=== PATIENT | female | born 1965 | race Caucasian/White ===

== ENCOUNTER 2021-01-01 08:46 | Emergency (ER) | payer SELFPAY ==
[2021-01-01] MEDS ORDERED: PHENERGAN 25 MG25 M1 PO (12:57)
== END 2021-01-01 13:09 | disposition home or self-care (01) ==
LOC: ER1 08:46
DX: R51.9 Headache, unspecified (principal); E03.9 Hypothyroidism, unspecified; Z88.5 Allergy status to narcotic agent; B37.9 Candidiasis, unspecified
CPT/HCPCS: 96374; 96375; 99283; J1200; J1885; J2765